=== PATIENT | male | born 1985 | race Caucasian/White ===

== ENCOUNTER 2020-11-07 02:16 | Emergency (ER) | payer BC ==
[2020-11-07] MEDS ORDERED: Azithromycin 250 MG Tab PO ONE (02:42)
[2020-11-07] MEDS ORDERED: Ibuprofen 600 MG Tab PO ONE (02:42)
--- NOTE | 2020-11-07 02:55 | EDM.PDOC ---
ED HPI GENERAL MEDICAL PROBLEM - General Chief Complaint: Headache Stated Complaint: LEFT SIDE MIGRAINE, SINUS PAIN, TOOTH PAIN Time Seen by Provider: 11/07/20 02:50 - History of Present Illness INITIAL COMMENTS - FREE TEXT/NARRATIVE: HISTORY AND PHYSICAL: History of present illness: This is a 35-year-old gentleman with no significant past medical history of hypertension, diabetes, liver, lung, kidney problems who presents ER today complaining of pain to his left maxillary sinus x2 to 3 days. Patient reports that the pain radiates to his teeth, his ears, and has been giving him a headache for the last 2 to 3 days. Patient reports that he was going to wait till the morning to see his doctor however he was unable to sleep secondary to the pain. Patient denies any recent fevers, shakes, chills, nausea, vomit, diarrhea, dysuria, frequency, urgency. Patient reports a feels a pressure in his left maxillary sinus region. Patient has any double vision or blurred vision. Patient denies any thunderclap headache. Patient denies any nuchal rigidity. Patient denies any trauma. Review of systems: As per history of present illness and below otherwise all systems reviewed and negative. Past medical history: As per history of present illness and as reviewed below otherwise noncontributory. Surgical history: As per history of present illness and as reviewed below otherwise noncontributory. Social history: No reported history of drug abuse. Family history: As per history of present illness and as reviewed below otherwise noncontributory. Physical exam: This patient was seen and evaluated during the 2019 SARS-CoV-2 novel coronavirus pandemic period. Community viral transmission is ongoing at time of this encounter and the emergency department is operating under pandemic response procedures. Constitutional: Patient is oriented to person, place, and time. Appears well- developed and well-nourished. No distress. HEENT: Moist mucous membranes. Neck supple, no nuchal rigidity, no photophobia, no Kernig's sign or Brudzinski sign, patient does not present with signs or symptoms of be consistent with meningitis. Tympanic membrane's bilaterally are pearly damon without any bulging. Patient's nasal turbinates were evaluated no foreign body identified. Patient's teeth were palpated with no reproducible tenderness on palpating all his teeth. No swelling to his gums. Head: Normocephalic and atraumatic Eyes: Right eye exhibits no discharge. Left eye exhibits no discharge. No scleral icterus Neck: Normal range of motion. No tracheal deviation present. Cardiovascular: Normal rate and regular rhythm. Pulmonary: Effort normal, no respiratory distress. Abdominal: No distention Musculoskeletal: Normal range of motion Neurologic: Alert and oriented to person, place and time. Skin: [place], warm and dry. Psychiatric: Normal mood and affect. Behavior is normal. Judgment and thought content normal. Nursing note and vital signs have been reviewed Assessment and plan: 35-year-old gentleman who presents ER today secondary to pain to his left maxillary sinus resulting in headache. Patient will be given Toradol and will get started on Zithromax for empiric treatment of possible maxillary sinusitis. Patient is clinically hemodynamically stable. Patient has a normal neurological exam here in the ED. Patient will be instructed to follow-up with his primary physician in the next 2 to 3 days for reevaluation if symptoms persist. Return precautions have been reviewed with the patient. Reassessment at the time of disposition demonstrates that the patient is in no acute distress. The patient has remained stable throughout the entire ED visit and is without objective evidence for acute process requiring urgent intervention or hospitalization. The patient is stable for discharge, counseling is provided as documented above, discussed symptomatic treatment and specific conditions for return. I have spoken with the patient/caregiver and discussed todays findings, in addition to providing specific details for the plan of care. Questions are answered and there is agreement with the plan. Definitive disposition and diagnosis as appropriate pending reevaluation and review of above. 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: Reports: Acetaminophen head Pain Score (Numeric/FACES): 7 - Related Data Allergies Allergy/AdvReac Type Severity Reaction Status Date / Time No Known Allergies Allergy Verified 11/07/20 02:32 Home Meds: Home Meds Dextroamphetamine/Amphetamine [Adderall] 30 mg PO TID 11/07/20 [History] Past Medical History - Past Health History Medical/Surgical History: Denies Medical/Surgical History Psychiatric History: Reports: ADHD - Infectious Disease History Infectious Disease History: Reports: None Social & Family History - Tobacco Use Tobacco Use Status *Q: Current Every Day Tobacco User Years of Tobacco use: 15 Packs/Tins Daily: 0.5 - Alcohol Use Days Per Week of Alcohol Use: 7 Number of Drinks Per Day: 1 Total Drinks Per Week: 7 - Recreational Drug Use Recreational Drug Use: No ED ROS GENERAL - Review of Systems Review Of Systems: See Below ED EXAM, GENERAL - Physical Exam Exam: See Below Course - Vital Signs Last Recorded V/S: Last Vital Signs Temp 97.4 F 11/07/20 02:29 Pulse 90 11/07/20 02:29 Resp 18 11/07/20 02:29 BP 171/107 H 11/07/20 02:29 Pulse Ox 98 11/07/20 02:29 - Orders/Labs/Meds Meds: Medications Discontinued Medications Generic Name Dose Route Start Last Admin Trade Name Skylar PRN Reason Stop Dose Admin Azithromycin 500 mg 11/07/20 02:42 11/07/20 02:46 Azithromycin 250 Mg Tab PO 11/07/20 02:43 500 mg Q24H ONE Administration Ibuprofen 600 mg 11/07/20 02:42 11/07/20 02:46 Ibuprofen 600 Mg Tab PO 11/07/20 02:43 600 mg ONETIME ONE Administration Departure - Departure Time of Disposition: 03:02 Disposition: Home, Self-Care 01 Condition: Good Clinical Impression: Sinus headache, Sinusitis, Hypertension - Discharge Information Instructions: Sinusitis, Adult, [id number], Sinus Headache, Hypertension, Adult, [id number] Referrals: William Cunningham MD [Primary Care Provider] - Forms: ED Department Discharge Additional Instructions: Your seen and evaluated in the ER today secondary to pain and discomfort maxillary sinus resulting in headaches. Your exam was essentially unremarkable with no identifiable cause for your symptoms at this time. Your symptoms may be related to a sinus infection so we will start you on antibiotics. You were given a dose of Toradol intramuscularly to help you with your headache and you will be given a prescription for ibuprofen to take in addition to the acetaminophen that you have been taking at home. Please make an appointment see your family doctor in the next 2 to 3 days for reevaluation. The following information is given to patients seen in the emergency department who are being discharged to home. This information is to outline your options for follow-up care. We provide all patients seen in our emergency department with a follow-up referral. The need for follow-up, as well as the timing and circumstances, are variable depending upon the specifics of your emergency department visit. If you don't have a primary care physician on staff, we will provide you with a referral. We always advise you to contact your personal physician following an emergency department visit to inform them of the circumstance of the visit and for follow-up with them and/or the need for any referrals to a consulting specialist. The emergency department will also refer you to a specialist when appropriate. This referral assures that you have the opportunity for follow-up care with a specialist. All of these measure are taken in an effort to provide you with optimal care, which includes your follow-up. Under all circumstances we always encourage you to contact your private physician who remains a resource for coordinating your care. When calling for follow-up care, please make the office aware that this follow-up is from your recent emergency room visit. If for any reason you are refused follow-up, please contact the [facility] Emergency Department at and asked to speak to the emergency department charge nurse. [facility] [address] [place] [id number] [address] Sepsis Event Note (ED) - Evaluation Sepsis Screening Result: No Definite Risk - Focused Exam Vital Signs: Vital Signs Temp Pulse Resp BP Pulse Ox 11/07/20 02:29 97.4 F 90 18 171/107 H 98
== END 2020-11-07 03:15 | disposition home or self-care (01) ==
LOC: MW.ED 02:16
DX: J32.9 Chronic sinusitis, unspecified (principal); I10 Essential (primary) hypertension; Z72.0 Tobacco use
CPT/HCPCS: 99283; A9270